=== PATIENT | male | born 1970 | race African-American/Black ===

== ENCOUNTER → 2016-12-10 | Outpatient (CLI) | payer OTHER | END | disposition home or self-care (01) | LOC: SURG 14:56 | PROVIDERS: ATTEND Anesthesiology Pain Medicine | DX: M54.5 Low back pain (principal); M19.90 Unspecified osteoarthritis, unspecified site; I10 Essential (primary) hypertension | CPT/HCPCS: 99214 ==

== ENCOUNTER → 2018-04-28 | Outpatient (CLI) | payer OTHER ==
[~2018-04-28] MED LIST: KETOROLAC 30 MG/ML VIAL. IM ONE; KETOROLAC 30 MG/ML VIAL. ONE
== END | disposition home or self-care (01) ==
LOC: SURG 10:08
PROVIDERS: ATTEND Anesthesiology Pain Medicine
DX: M47.892 Other spondylosis, cervical region (principal); M19.90 Unspecified osteoarthritis, unspecified site; Z88.0 Allergy status to penicillin; Z88.8 Allergy status to other drugs, medicaments and biological substances
CPT/HCPCS: 96372; 99214; J1885